=== PATIENT | male | born 1970 | race Caucasian/White ===

== ENCOUNTER 2018-12-27 07:33 | Inpatient (IN) | payer MEDICAID ==
[2018-12-27] VITALS (11 sets, daily range): BP systolic 99–140; BP diastolic 50–102
[~2018-12-27] VITALS: Ht 188 cm; Wt 121.1 kg
[~2018-12-27 07:33] MED LIST: BACITRACIN 50000 UNITS/VIAL ONE
[2018-12-27] MEDS ORDERED: HYDR-3980 PO (08:19)
[2018-12-27] MEDS ORDERED: CLON2TAB11 PO (08:19)
[2018-12-27] MEDS ORDERED: BACL10TA PO (08:19)
[2018-12-27] MEDS ORDERED: BUPIVACAINE 0.75% DEXT-PF 2 ML AMPUL ONE (09:11)
[2018-12-27] MEDS ORDERED: FENTANYL PF 100MCG/2ML AMPUL ONE (09:12)
[2018-12-27] MEDS ORDERED: MORPHINE SULFATE/PF 10 MG/10ML (1MG/ML) AMPUL ONE (09:12)
[2018-12-27] MEDS ORDERED: SCOPOLAMINE HBR 1 EA PATCH.TD72 TD ONE (09:12)
[2018-12-27] MEDS ORDERED: MIDAZOLAM HCL 2 MG/2ML VIAL ONE ×2 (09:13→11:27)
[2018-12-27] MEDS ORDERED: TRANEXAMIC ACID 3,000 MG in SODIUM CHLORIDE IRRIG SOLUTION 70 ML IR ONE (10:00)
[2018-12-27] MEDS ORDERED: HYDROMORPHONE 1 MG/1 ML DISP.SYRIN ONE (11:11)
[2018-12-27] MEDS ORDERED: IV LR 1000 ML 1,000 ML IV PRN (13:00)
[2018-12-27] MEDS ORDERED: diphenhydrAMINE HCL 25 MG CAPSULE PO PRN (13:00)
[2018-12-27] MEDS ORDERED: SENOKOT 8.6 MG TABLET PO PRN (13:00)
[2018-12-27] MEDS ORDERED: BISACODYL SUPP (10 MG) 10 MG/SUPP.RECT SUPP.RECT RC PRN (13:00)
[2018-12-27] MEDS ORDERED: COLACE 250 MG CAPSULE PO PRN (13:00)
[2018-12-27] MEDS ORDERED: NALOXONE HCL 0.4 MG/ML AMPUL IV PRN (13:00)
[2018-12-27] MEDS: ANCEF 1 G in IV D5W 50 ML IV SCH ×2 (13:39→20:44)
[2018-12-27] MEDS: HYDROMORPHONE 1 MG/1 ML DISP.SYRIN IV PRN ×4 (13:51→20:44)
[2018-12-27] MEDS: TYLENOL 650 MG TABLET PO PRN (19:58)
[2018-12-27] MEDS ORDERED: AMBIEN 5 MG TABLET PO PRN (22:00)
[2018-12-28] MEDS: HYDROMORPHONE 1 MG/1 ML DISP.SYRIN IV PRN ×5 (00:02→11:22)
[2018-12-28 00:54] VITALS: BP 118/71
[2018-12-28] MEDS: HYDROCODONE/APAP 5/325MG 1 EACH TABLET PO PRN ×2 (04:49→12:52)
[2018-12-28 06:44] LABS: HEMOGLOBIN 12.9 g/dL (13.5-17.5)
[2018-12-28 08:00] VITALS: BP_SYST 100; BP_SYST 88; BP_DIAS 43; BP_DIAS 68
[2018-12-28] MEDS ORDERED: ALBUTEROL FS 2.5 MG/0.5 ML VIAL.NEB NEB PRN (13:30)
[2018-12-28] MEDS: MORPHINE SULFATE INJ 2 MG/ML DISP.SYRIN IV PRN ×2 (15:24→18:46)
[2018-12-28 16:00] VITALS: BP_SYST 103; BP_SYST 117; BP_DIAS 62; BP_DIAS 85
[2018-12-28] MEDS: oxyCODONE/APAP (5/325 MG) 1 UDTAB TABLET PO PRN ×2 (16:00→23:30)
[2018-12-28] MEDS: NICOTINE PATCH (14MG) 14 MG PATCH.TD24 TD SCH (19:14)
[2018-12-28] MEDS: TYLENOL 650 MG TABLET PO PRN (20:01)
[2018-12-29] MEDS: MORPHINE SULFATE INJ 2 MG/ML DISP.SYRIN IV PRN ×4 (06:03→22:42)
[2018-12-29] MEDS: TYLENOL 650 MG TABLET PO PRN (06:39)
[2018-12-29] MEDS: oxyCODONE/APAP (5/325 MG) 1 UDTAB TABLET PO PRN ×3 (07:24→19:21)
[2018-12-29 08:00] VITALS: BP 124/71
[2018-12-29] MEDS: NICOTINE PATCH (14MG) 14 MG PATCH.TD24 TD SCH (08:40)
[2018-12-29 16:00] VITALS: BP 125/74
[2018-12-29 20:00] VITALS: BP 131/82
[2018-12-30] MEDS: oxyCODONE/APAP (5/325 MG) 1 UDTAB TABLET PO PRN ×4 (00:51→19:32)
[2018-12-30 04:00] VITALS: BP_SYST 106; BP_SYST 122; BP_DIAS 66; BP_DIAS 73
[2018-12-30 08:00] VITALS: BP 110/69
[2018-12-30] MEDS: NICOTINE PATCH (14MG) 14 MG PATCH.TD24 TD SCH ×2 (09:00→15:35)
[2018-12-30] MEDS: MORPHINE SULFATE INJ 2 MG/ML DISP.SYRIN IV PRN (11:22)
[2018-12-30 16:00] VITALS: BP 94/75
[2018-12-30] MEDS: TYLENOL 650 MG TABLET PO PRN (18:05)
[2018-12-30 20:00] VITALS: BP 107/61
[2018-12-30] MEDS ORDERED: CALCIUM CARBONATE 500 MG TAB.CHEW PO PRN (20:30)
[2018-12-31] MEDS: MORPHINE SULFATE INJ 2 MG/ML DISP.SYRIN IV PRN ×2 (01:40→08:04)
[2018-12-31] MEDS: oxyCODONE/APAP (5/325 MG) 1 UDTAB TABLET PO PRN ×3 (03:26→15:14)
[2018-12-31 04:00] VITALS: BP 120/69
[2018-12-31 08:00] VITALS: BP 109/62
[2018-12-31] MEDS: NICOTINE PATCH (14MG) 14 MG PATCH.TD24 TD SCH (08:03)
== END 2018-12-31 18:48 | disposition home or self-care (01) | DRG 302 ==
LOC: DS 07:33 → MEDSG1 07:43 → TELE1 12:08 → MEDSG1 12-28 08:00 → UNDODISIN 12-31 15:56
PROVIDERS: ADMIT Specialist; ATTEND Family Medicine
PROC: 0SRC0J9 Replacement of Right Knee Joint with Synthetic Substitute, Cemented, Open Approach (ICD-10-PCS; principal; 2018-12-27)
DX: M17.11 Unilateral primary osteoarthritis, right knee (principal); E66.9 Obesity, unspecified; F12.90 Cannabis use, unspecified, uncomplicated; F17.210 Nicotine dependence, cigarettes, uncomplicated
CPT/HCPCS: 36415; 85027-TC; 87081-TC; 88305-TC; 88311-TC; 97110-TC; 97116-TC; 97530-TC; 97760-TC; A4217; A6253; A6402; C1713; G0378; J0690; J1100; J1170; J1885; J2250; J2270; J2274; J2704; J3010; J3490; J7060; J7120